=== PATIENT | male | born 1980 | race Caucasian/White ===

== ENCOUNTER 2016-12-28 06:08 | Emergency (ER) | payer SELFPAY ==
[~2016-12-28 06:08] MED LIST: AMOXICILLIN500 MG; AMOXIL500 M PO; AMOXIL500 MG PO; ANTIBEN EAR DRO15 ML OT; COLACE100 MG PO; ERYTHROMYCIN3.5 GM OP; FLEXERIL10 MG PO; HYDROCORTISON28.411 TP; IBUPROFEN200 M1 PO; MOTRIN800 MG PO; NORCO 5-325 TA1 EACH PO; NORCO 5/325 TAB1 TAB PO; OXYCODONE/APAP PO; PERCOCET 5/3251 TAB PO; ZOFRAN ODT4 MG/UDTAB PO
[2016-12-28] MEDS ORDERED: IBUPROFEN200 M2 PO (06:20)
[2016-12-28 07:00] LABS: URINE BILIRUBIN NEGATIVE (NEG); URINE BLOOD NEGATIVE (NEG); URINE GLUCOSE (UA) NEGATIVE (NEG); URINE KETONE NEGATIVE (NEG); URINE LEUKOCYTE ESTERASE NEGATIVE (NEG); URINE NITRITE NEGATIVE (NEG); URINE PROTEIN MODERATE (NEG)
[2016-12-28 07:01] LABS: URINE APPEARANCE CLEAR; URINE COLOR PALE YELLOW
[2016-12-28 07:01] LABS: BASO % 0.5 % (0-2); BASO ABSOLUTE COUNT 0.1 tho/cmm (0.0-0.2); EOS % 1.7 % (0-7); EOSINOPHIL ABSOLUTE COUNT 0.2 tho/cmm (0.0-0.7); HCT-HEMATOCRIT 46.2 % (36.0-53.5); HGB-HEMOGLOBIN 16.2 gm/dl (13.5-17.0); IMMATURE GRANULOCYTES ABSOLUTE 0.03 tho/cmm (0-0.03); IMMATURE GRANULOCYTES PERCENT 0.3 % (0-0.3); LYMPH ABSOLUTE COUNT 1.9 tho/cmm (0.8-4.5); MCH (MEAN CORPUSCULAR HGB) 29.3 pg (28.0-32.0); MCHC MEAN CORPUSCULAR HGB CONC 35.1 % (32.0-36.0); MCV (MEAN CELL VOLUME) 83.5 fl (82.0-96.0); MEAN PLATELET VOLUME 11.5 cmc (9.4-12.4); MONO % 9.9 % (0-12); MONOCYTE ABSOLUTE COUNT 1.1 tho/cmm (0.0-1.2); NEUTROPHIL ABSOLUTE COUNT 7.7 tho/cmm (1.6-8.0); NEUTROPHIL-AUTOMATED 7.7 tho/cmm (1.6-8.0); NEUTROPHILS % 70.6 % (40-80); PLATELET COUNT 189 tho/cmm (150-450); RED BLOOD COUNT 5.53 mil/cmm (4.40-5.70)
[2016-12-28 07:12] LABS: ANION GAP 12 mmol/L (0-20); BLOOD UREA NITROGEN 22 mg/dl (6-24); CARBON DIOXIDE-VENOUS 23 mmol/L (22-32); CHLORIDE 109 mmol/l (96-110); GLUCOSE 116 mg/dL (70-110); SODIUM 140 mmol/L (135-145); eGFR VALUE FOR BLACK 55 mL/Min
[2016-12-28 07:14] LABS: URINE EPITHELIAL CELLS 0-1 /[HPF] (0-10); URINE RBC 0-1 /[HPF] (0-5); URINE WBC 0 /[HPF] (0-5)
[2016-12-28] MEDS ORDERED: NORCO 5-325 TA1 EACH PO (08:21)
[2016-12-28] MEDS ORDERED: ROBAXIN-750750 M1 PO (08:21)
== END 2016-12-28 09:26 ==
LOC: EDMED 06:08
PROVIDERS: Emergency Medicine
DX: N28.9 Disorder of kidney and ureter, unspecified (principal); M54.9 Dorsalgia, unspecified; R80.9 Proteinuria, unspecified
CPT/HCPCS: J1170; J1885; J7030